=== PATIENT | male | born 1990 | race Caucasian/White ===

== ENCOUNTER 2018-10-10 10:57 | Day surgery (SDC) | payer BC, OTHER ==
[~2018-10-10] VITALS: Ht 175.3 cm; Wt 84.5 kg
[2018-10-10] MEDS ORDERED: PROTPAK PO (11:07)
[2018-10-10] MEDS ORDERED: SUCR1TA PO (11:07)
[2018-10-10 11:44] LABS: BASO # 0.1 10^3/uL (0.0-0.2); BASO % 0.4 % (0.0-1.0); EOS # 0.8 10^3/uL (0.0-0.50); HEMATOCRIT 34.5 % (42.0-52.0); HEMOGLOBIN 10.7 g/dl (13.5-17.5); LYMPH # 2.5 10^3/uL (1.5-6.5); LYMPH % 17.8 % (24.0-44.0); MEAN CORPUSCULAR HEMOGLOBIN 24.3 pg (27.0-33.0); MEAN CORPUSCULAR VOLUME 78.4 fl (80.0-96.0); MONO # 1.1 10^3/uL (0.0-0.8); MONO % 7.9 % (0.0-5.0); NEUTROPHILS # 9.5 10^3/uL (1.8-7.7); NEUTROPHILS % 67.5 % (36.0-66.0); PLATELET COUNT, AUTOMATED 511 10^3/uL (150-450)
[2018-10-10 12:06] LABS: ALBUMIN 3.8 GM/DL (3.2-5.2); ALT/SGPT 35 U/L (12-78); BILIRUBIN,DIRECT < 0.1 MG/DL (0.0-0.2); BILIRUBIN,TOTAL 0.3 MG/DL (0.2-1.0); BLOOD UREA NITROGEN 16 MG/DL (7-18); CALCIUM LEVEL 8.4 MG/DL (8.5-10.1); CARBON DIOXIDE LEVEL 27 MEQ/L (21-32); CHLORIDE LEVEL 105 MEQ/L (98-107); CREATININE FOR GFR 0.84 MG/DL (0.70-1.30); GLOMERULAR FILTRATION RATE > 60.0 (>60); GLUCOSE, FASTING 95 MG/DL (70-100); POTASSIUM SERUM 3.8 MEQ/L (3.5-5.1); SODIUM LEVEL 140 MEQ/L (136-145); TOTAL PROTEIN 7.3 GM/DL (6.4-8.2)
[2018-10-10] MEDS ORDERED: OMEP40CA2 PO (13:17)
--- NOTE | 2018-10-10 14:07 | CR.PDOC ---
General Date of Consultation: Oct 10, 2018 Referring Provider: SE MEJIA PA-C Attending Physician: HALLIE KAMARA MD Consultation Referring Physician: [facility]. Reason for consult: Vomiting of blood. HPI: 28 year old male patient with h/o alcohol use, prior multiple orthopedic issues ( malunion fracture in left elbow), presented to ER for complaints of recurrent episodes of vomiting which start overnight with few episodes with blood in vomit. GI consulted for the same. Patient reports his last episode of vomiting was at 4:30 AM and no further vomiting after that. Patient also reports having one episode of dark formed stools at home today morning. Pertinent negative GI symptoms: Patient denies nausea, vomiting, diarrhea, abdominal pain, loss of appetite, early satiety or unintentional weight loss. No history of hematemesis, hematochezia. Patient reports regular bowel movements. Review of Systems: GI: as stated above CVS: No chest pain, No palpitations, No leg swelling. RS: No Shortness of breath, No Wheezing, no cough INFORMATICS SPECIALIST: No dizziness, No motor weakness, No sensory problems Hematology: No bruising, No gum bleeding, Musculoskeletal: No joint pain, ambulating well. Skin: No rash : No hematuria, No burning sensation of the urine ENT: No ear discharge/ pain, No dysphagia. Eyes: No photophobia. Jaundice Home medications: reviewed. Antithrombotic agents - None Medical h/o: As above. 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 Social h/o: Alcohol -- drinks every weekend and some weekdays -- some times more than 5 beers at once. smoking - denies , IVDA/ drugs - denies . Family h/o of GI cancers - None Prior Endoscopies: None in [facility] Prior GI evaluations: None Exam: Vitals: reviewed General: Alert and oriented x 3, not in distress HEENT: NO pallor, no icterus. Normal oropharynx, NO cervical lymph nodes. Chest: symmetric with bilateral clear air entry, CVS: S1, S2 heard, normal, no murmurs . Abdomen: non-distended, no surgical scars, soft, non-tender, no palpable masses, normal bowel sounds heard. Rectal exam: Patient refused Extremities: no pedal edema, pulses palpable. INFORMATICS SPECIALIST: no focal motor or sensory deficits. Moves all extremities Skin: no rash. Labs: reviewed. Slightly elevated WBC, but no active fever or chills, Normal - BUN /Cr. Impression: - Hematemesis after recurrent episodes of vomiting -- DDx- MWT vs Esophagitis vs PUD vs less likely AVM. Recommendations: - Patient educated about the test results, possible differential diagnoses and All questions answered. - Monitor H/H and transfuse if needed to keep Hemoglobin around- 8gm/dL - Give Pantoprazole IV drip or IV pushes 40 mg twice daily for now. - NPO. - Will schedule for EGD today in OR. - The procedure, indications, risks (bleeding, perforation, infection, hypotension, respiratory depression, allergy, need for endotracheal intubation, surgery, colostomy, cardiac arrest, even ), benefits, limitations (e.g., missing a lesion), and all other alternatives (including no intervention) were explained to the patient who understood and agreed for the procedure. Plan of care discussed with patient and primary team. Patient verbalized understanding and agreed with the plan. Laboratory Data Microbiology Microbiology 10/10/18 Urine Culture, Received Pending Allergies Coded Allergies: Meperidine (Unverified Adverse Reaction, Unknown, ANGRY, 10/10/18) Home Medications Scheduled Omeprazole (Omeprazole) 40 Mg Cap, 40 MG PO QHS, (Reported) HALLIE KAMARA MD Oct 10, 2018 14:07
[2018-10-10] MEDS ORDERED: LIDOCAINE 2% INJ 100 MG/5 ML SDV (FOR ANES.) As Ordered ONE (16:06)
[2018-10-10] MEDS ORDERED: PROPOFOL 200 MG/20 ML VIAL As Ordered ONE (16:06)
[2018-10-10] MEDS ORDERED: PANTOPRAZOLE 40MG INJ (PROTONIX) (C9113) IV STA (16:18)
[2018-10-10] MEDS ORDERED: ONDANSETRON 4MG/2ML VIAL (J2405) As Ordered ONE (16:24)
[2018-10-10] MEDS ORDERED: SUCCINYLCHOLINE 100 MG/5 ML SYRINGE (J0330) As Ordered ONE (16:24)
[2018-10-10] MEDS ORDERED: ROCURONIUM BROMIDE 50 MG/5 ML VIAL As Ordered ONE (16:24)
[2018-10-10] MEDS ORDERED: fentaNYL 100 MCG/2 ML INJECTION (J3010) As Ordered ONE (16:25)
[2018-10-10] MEDS ORDERED: MIDAZOLAM INJ 2 MG/2 ML VIAL (J2250) As Ordered ONE (16:25)
[2018-10-10] MEDS ORDERED: dexameTHASONE 4 MG/ML 1ML VIAL (J1100) As Ordered ONE (16:30)
--- NOTE | 2018-10-10 17:18 | ROOR ---
Patient Name: Boris Rico Procedure Date: 10/10/2018 4:56 PM Date of : 1990 Age: 28 Room: Main OR Gender: Male Note Status: Finalized Procedure: Upper GI endoscopy Indications: Hematemesis Providers: Nilson Cavazos MD Referring MD: 2. Inpatient 2. Inpatient Requesting Provider: Medicines: Monitored Anesthesia Care Complications: No immediate complications. Procedure: Pre-Anesthesia Assessment: - Prior to the procedure, a History and Physical was performed, and patient medications and allergies were reviewed. The patient is competent. The risks and benefits of the procedure and the sedation options and risks were discussed with the patient. All questions were answered and informed consent was obtained. Patient identification and proposed procedure were verified by the physician, the nurse and the anesthesiologist in the procedure room. Mental Status Examination: alert and oriented. Airway Examination: normal oropharyngeal airway and neck mobility. Respiratory Examination: clear to auscultation. CV Examination: normal. Prophylactic Antibiotics: The patient does not require prophylactic antibiotics. Prior Anticoagulants: The patient has taken no previous anticoagulant or antiplatelet agents. ASA Grade Assessment: II - A patient with mild systemic disease. After reviewing the risks and benefits, the patient was deemed in satisfactory condition to undergo the procedure. The anesthesia plan was to use general anesthesia. Immediately prior to administration of medications, the patient was re-assessed for adequacy to receive sedatives. The heart rate, respiratory rate, oxygen saturations, blood pressure, adequacy of pulmonary ventilation, and response to care were monitored throughout the procedure. The physical status of the patient was re-assessed after the procedure. The Endoscope was introduced through the mouth, and advanced to the second part of duodenum. The upper GI endoscopy was accomplished without difficulty. The patient tolerated the procedure well. Findings: LA Grade D (one or more mucosal breaks involving at least 75% of esophageal circumference) esophagitis with bleeding was found 25 to 37 cm from the incisors. Biopsies were taken with a cold forceps for histology. Verification of patient identification for the specimen was done by the physician and nurse using the patient's name, date and medical record number. Estimated blood loss was minimal. A small hiatal hernia was present. Scattered minimal inflammation characterized by erythema and granularity was found in the gastric body and in the gastric antrum. Biopsies were taken with a cold forceps for Helicobacter pylori testing. The duodenal bulb and second portion of the duodenum were normal. Impression: - LA Grade D reflux esophagitis. Rule out Cardona's esophagus. Biopsied. - Small hiatal hernia. - Gastritis. Biopsied. - Normal duodenal bulb and second portion of the duodenum. Recommendation: - Patient has a contact number available for emergencies. The signs and symptoms of potential delayed complications were discussed with the patient. Return to normal activities tomorrow. Written discharge instructions were provided to the patient. - Full liquid diet today, then advance as tolerated to resume previous diet. - Follow an antireflux regimen. - Use Prilosec (omeprazole) 20 mg PO BID for 3 months. - Use sucralfate suspension 1 gram PO QID for 1 month. - Await pathology results. - Repeat upper endoscopy in 3 months to check healing. - Return to GI clinic in [facility] (address [address], [address], [place], [facility]) in 4 -- 6 weeks. Please call GI clinic @ [phone] for apppointment date and time. - Return to primary care physician. Nilson Cavazos MD Nilson Cavazos MD 10/10/2018 5:17:38 PM This report has been signed electronically. Number of Addenda: 0 Note Initiated On: 10/10/2018 4:56 PM Estimated Blood Loss: Estimated blood loss was minimal.
[2018-10-10] MEDS ORDERED: ONDANSETRON 4MG/2ML VIAL (J2405) IV PRN (17:30)
[2018-10-10] MEDS ORDERED: fentaNYL 100 MCG/2 ML INJECTION (J3010) IV PRN (17:30)
[2018-10-10] MEDS ORDERED: LR 1,000 ML IV SCH (17:30)
[2018-10-10 18:25] VITALS: BP 124/74
== END 2018-10-10 18:40 | disposition home or self-care (01) ==
LOC: M ED 10:57 → M SDC 13:30
PROVIDERS: ATTEND Internal Medicine Gastroenterology
DX: K92.0 Hematemesis (principal); K21.0 Gastro-esophageal reflux disease with esophagitis; K29.70 Gastritis, unspecified, without bleeding; K44.9 Diaphragmatic hernia without obstruction or gangrene; Z88.5 Allergy status to narcotic agent; Z87.81 Personal history of (healed) traumatic fracture; Z72.0 Tobacco use
CPT/HCPCS: 43239; 80048; 80076; 81001; 85025; 86850; 86900; 86901; 87086; 88305; 96374; 99284; C9113; J0330; J1100; J2250; J2405; J3010

== ENCOUNTER 2019-02-06 06:56 | Day surgery (SDC) | payer OTHER ==
[~2019-02-06] VITALS: Ht 175.3 cm; Wt 82.1 kg
[~2019-02-06 06:56] MED LIST: NS 1,000 ML IV ONE; OMEP40CA2 PO; PROTPAK PO; SUCR1TA PO
[2019-02-06] MEDS ORDERED: PROPOFOL 500 MG/50 ML VIAL As Ordered ONE (07:43)
[2019-02-06] MEDS ORDERED: LIDOCAINE 2% INJ 100 MG/5 ML SDV (FOR ANES.) As Ordered ONE (07:43)
[2019-02-06] MEDS ORDERED: fentaNYL 100 MCG/2 ML INJECTION (J3010) As Ordered ONE (07:43)
[2019-02-06] MEDS ORDERED: METOCLOPRAMIDE INJ 10MG/2ML VIAL (J2765) As Ordered ONE (07:52)
[2019-02-06] MEDS ORDERED: ONDANSETRON 4MG/2ML VIAL (J2405) As Ordered ONE (07:52)
--- NOTE | 2019-02-06 08:08 | ROOR ---
Patient Name: Boris Rico Procedure Date: 02/06/2019 7:32 AM Date of : 1990 Age: 28 Room: [facility] Gender: Male Note Status: Finalized Procedure: Upper GI endoscopy Indications: Follow-up of esophagitis, Follow-up of reflux esophagitis Providers: Nilson Cavazos MD Referring MD: TERRY Winston Requesting Provider: Medicines: Monitored Anesthesia Care Complications: No immediate complications. Procedure: Pre-Anesthesia Assessment: - Prior to the procedure, a History and Physical was performed, and patient medications and allergies were reviewed. The patient is competent. The risks and benefits of the procedure and the sedation options and risks were discussed with the patient. All questions were answered and informed consent was obtained. Patient identification and proposed procedure were verified by the physician, the nurse and the anesthesiologist in the procedure room. Mental Status Examination: alert and oriented. Airway Examination: normal oropharyngeal airway and neck mobility. Respiratory Examination: clear to auscultation. CV Examination: normal. Prophylactic Antibiotics: The patient does not require prophylactic antibiotics. Prior Anticoagulants: The patient has taken no previous anticoagulant or antiplatelet agents. ASA Grade Assessment: II - A patient with mild systemic disease. After reviewing the risks and benefits, the patient was deemed in satisfactory condition to undergo the procedure. The anesthesia plan was to use monitored anesthesia care (MAC). Immediately prior to administration of medications, the patient was re-assessed for adequacy to receive sedatives. The heart rate, respiratory rate, oxygen saturations, blood pressure, adequacy of pulmonary ventilation, and response to care were monitored throughout the procedure. The physical status of the patient was re-assessed after the procedure. The Endoscope was introduced through the mouth, and advanced to the second part of duodenum. The upper GI endoscopy was accomplished without difficulty. The patient tolerated the procedure well. Findings: LA Grade D (one or more mucosal breaks involving at least 75% of esophageal circumference) esophagitis with bleeding was found 26 to 34 cm from the incisors. Biopsies were taken with a cold forceps for histology. Biopsies were obtained from the proximal and distal esophagus with cold forceps for histology of suspected eosinophilic esophagitis. Verification of patient identification for the specimen was done by the physician and nurse using the patient's name, date and medical record number. Estimated blood loss was minimal. Scattered minimal inflammation characterized by erythema and granularity was found in the gastric antrum. Biopsies were taken with a cold forceps for Helicobacter pylori testing. The duodenal bulb and second portion of the duodenum were normal. Impression: - LA Grade D reflux esophagitis. Rule out Cardona's esophagus. Biopsied. - Gastritis. Biopsied. - Normal duodenal bulb and second portion of the duodenum. Recommendation: - Patient has a contact number available for emergencies. The signs and symptoms of potential delayed complications were discussed with the patient. Return to normal activities tomorrow. Written discharge instructions were provided to the patient. - Resume previous diet. - Use Protonix (pantoprazole) 40 mg PO twice daily - to be taken in morning (1/2 hour before breakfast) and at bedtime ( atleast 3 hours after last meal) for 3 months. - Follow an antireflux regimen. - Await pathology results. - Return to GI clinic in [facility] (address [address], [address], [place] [address]) in 4 -- 6 weeks. Please call GI clinic @ [phone] for apppointment date and time. - Return to primary care physician. Nilson Cavazos MD Nilson Cavazos MD 02/06/2019 8:08:22 AM Electronically signed by Nilson Cavazos MD Number of Addenda: 0 Note Initiated On: 02/06/2019 7:32 AM Estimated Blood Loss: Estimated blood loss was minimal.
[2019-02-06 08:15] VITALS: BP 117/68
== END 2019-02-06 08:34 | disposition home or self-care (01) ==
LOC: M SDC 06:56
PROVIDERS: ATTEND Internal Medicine Gastroenterology
DX: K21.0 Gastro-esophageal reflux disease with esophagitis (principal); Z79.899 Other long term (current) drug therapy; Z88.8 Allergy status to other drugs, medicaments and biological substances; F17.220 Nicotine dependence, chewing tobacco, uncomplicated
CPT/HCPCS: 43239; 88305; J2405; J2765; J3010